=== PATIENT | male | born 1955 | race Caucasian/White ===

== ENCOUNTER 2016-10-18 16:33 | Outpatient (CLI) | payer OTHER ==
[2016-11-28] MEDS ORDERED: PRAVASTATIN SOD20 MG PO (11:12)
[2016-11-28] MEDS ORDERED: SYNTHROID75 MCG PO (11:13)
[2016-11-28] MEDS ORDERED: PRINIVIL5 MG PO (11:13)
[2016-11-28] MEDS ORDERED: METFORMIN HCL500 MG PO (11:13)
[2016-11-28] MEDS ORDERED: ASPIRIN ADULT L81 M1 PO (11:14)
== END 2016-10-18 19:00 | disposition home or self-care (01) ==
LOC: RT SRH 16:33 → ACUTE2 SRH 16:58 → RT SRH 19:00
DX: R42 Dizziness and giddiness (principal)

== ENCOUNTER 2016-11-23 10:14 | Outpatient (CLI) | payer OTHER ==
--- NOTE | 2016-11-23 12:44 | DIAGNOSTIC IMAGING REPORT ---
PROCEDURE: XR BARIUM SWALLOW INDICATION: Mid esophageal dysphagia. TECHNIQUE: Double contrast study. Fluoroscopy time, 4.6 minutes; 3024.89 mGy. 67 fluoroscopic images (including cine fluoroscopy of the esophagus). COMPARISON: None. FINDINGS: Pharyngoesophagus is within normal limits. No constricting or polypoid lesions. There are moderate tertiary contractions of the mid and distal esophagus with moderate narrowing of the gastroesophageal junction (7 mm). No polypoid lesions are identified. The proximal esophagus is normal. There is no evidence of reflux on this study (although reflux may be intermittent). IMPRESSION: 1. Normal pharyngoesophagus. 2. Moderate tertiary contractions of the mid and distal esophagus suggests chronic esophageal spasm. 3. Moderate narrowing of the gastroesophageal junction (7 mm). While there is no evidence of reflux on this study, reflux esophageal stricture should still be considered. 4. Findings discussed with the patient.
[2016-11-28] MEDS ORDERED: PRAVASTATIN SOD20 MG PO (11:12)
[2016-11-28] MEDS ORDERED: METFORMIN HCL500 MG PO (11:13)
[2016-11-28] MEDS ORDERED: SYNTHROID75 MCG PO (11:13)
[2016-11-28] MEDS ORDERED: PRINIVIL5 MG PO (11:13)
[2016-11-28] MEDS ORDERED: ASPIRIN ADULT L81 M1 PO (11:14)
== END 2016-11-23 23:00 | disposition home or self-care (01) ==
LOC: XR SRH 10:14
DX: K22.9 Disease of esophagus, unspecified (principal)